=== PATIENT | male | born 2000 | race Caucasian/White ===

== ENCOUNTER → 2023-12-17 16:55 | Outpatient (REF) | payer BC, SELFPAY | LOC: RAD 16:55 | PROVIDERS: ATTENDING PHYSICIAN Nurse Practitioner Family | DX: M25.521 Pain in right elbow (principal) | CPT/HCPCS: 73080 ==

== ENCOUNTER 2025-11-04 11:19 | Emergency (ER) | payer BC, SELFPAY ==
[2025-11-04 11:20] VITALS: BP 127/80
--- NOTE | 2025-11-04 11:48 | ED.GENMED ---
History of Present Illness
General
Chief Complaint: Cold/Flu/URI Symptoms
Source: patient
Exam Limitations: none
Time Seen by Provider: 11/04/25 11:41
History of Present Illness
History of Present Illness:
25-year-old male otherwise healthy presents with 3 days worth of cough fatigue myalgias vomiting. He has a history of asthma and has been using his inhaler as well. His girlfriend is sick with the flu. No other complaints at this time
Past History
Past History
ED Past Medical History: None
ED Past Surgical History: None
Phy Exam
Physical Exam
Physical Exam:
General: Well-appearing male no acute respiratory distress
HEENT: Normocephalic mucosa dry neck is supple
Heart: Slightly tachycardic but regular
Lungs: Clear no wheeze
Abdomen is soft nontender
Extremities: No cyanosis
Course
Orders/Labs/Results
Orders:
Orders
11/04/25 11:43
COVID-19 Antigen Routine
Source: Nasal Swab
Influenza A+B Rapid Molecular Urgent
ELIE Source: Nasal Swab
Specimen Description:
11/04/25 11:46
0.9% Sodium Chloride 1000 ml [Nss] 1,000 ml IV BOLUS
Ondansetron Injectable [Zofran] 4 mg IV NOW STA
11/04/25 11:56
Complete Blood Count/With Diff Urgent
Comprehensive Metabolic Panel Urgent
Abnormal Lab Results
11/04/25
11:56
WBC 4.2 L 10^3/uL
(4.8-10.8)
RBC 4.63 L 10^6/uL
(4.70-6.10)
Absolute Lymphs (auto) 0.8 L 10^3/uL
(1.2-3.4)
Absolute Monos (auto) 0.7 H 10^3/uL
(0.1-0.6)
Lymphocytes % 19.1 L %
(20.5-51.1)
Monocytes % 15.4 H %
(1.7-9.3)
Sodium 134 L mmol/L
(135-145)
Glucose 105 H mg/dl
(70-99)
11/04/25 11:56
11/04/25 11:56
Vital Signs
Initial and Last Documented VS:
Initial Vital Signs
Temp Pulse Resp BP Pulse Ox
99.2 F 110 18 127/80 99
11/04/25 11:20 11/04/25 11:20 11/04/25 11:20 11/04/25 11:20 11/04/25 11:20
Last Documented Vital Signs
Temp Pulse Resp BP Pulse Ox
99.2 F 110 18 127/80 99
11/04/25 11:20 11/04/25 11:20 11/04/25 11:20 11/04/25 11:20 11/04/25 11:49
MDM/Problems Addressed
Differential Diagnosis Includes:
Patient with fever myalgias fatigue cough vomiting for 3 days. Consider viral illness such as flu or COVID. Will check for electrolyte abnormality. Will treat symptoms with Zofran and fluids.
*Pulse Oximetry
SaO2: 99
Oxygen Mode of Delivery: Room air
Patient hypoxic: no
*Critical Care Note
Total Time (30-74mins, 75-104mins- exclusive of procedures): Not Applicable
Update Note
Update Note:
Labs reviewed white count 4.2. Patient tested positive for influenza A. Now tolerating oral fluids. No respiratory distress. Suspect most symptoms are related to influenza. Will prescribe Zofran and albuterol if needed. Stable for discharge
ED Attending Note
-
Portions of this chart may have been created with voice recognition software.� Occasional wrong word or��sound alike� substitutions may have occurred due to the inherent limitations of voice recognition software.
Discharge Plan
Departure
Patient Disposition: Home (Routine Discharge)
Date of Disposition: 11/04/25
Time of Disposition: 13:37
Patient with high blood pressure during this ER visit?: No
Discharge Problem:
Influenza A
Instructions: Flu in adults - ED (DC)
Prescriptions:
New
ondansetron 4 mg tablet,disintegrating
4 mg PO Q8H PRN (Reason: nausea and vomiting) Qty: 10 0RF
albuterol sulfate 2.5 mg /3 mL (0.083 %) solution for nebulization
2.5 mg inhalation Q6H PRN (Reason: shortness of breath or wheezing) Qty: 75 0RF
No Action
sertraline 50 MG tablet
100 mg PO DAILY
omeprazole 10 MG capsule,delayed release(DR/EC)
10 mg PO BID
ondansetron 4 MG tablet,disintegrating
4 mg PO TIDPRN PRN (Reason: nausea/vomiting) Qty: 6 0RF
amoxicillin 500 mg capsule
500 mg PO TID Qty: 29 0RF
ibuprofen 600 mg tablet
600 mg PO Q6H PRN (Reason: pain) Qty: 20 0RF
cyclobenzaprine 10 mg tablet
10 mg PO TID PRN (Reason: muscle spasm) Qty: 7 0RF
Referrals:
Linda Obrien MD [Family Provider, Family Practice]
Activity Restrictions/Additional Instructions:
Drink plenty of clear liquids. Use Zofran if needed for nausea. Use your nebulizer as needed for trouble breathing. Rest. Continue fever control with ibuprofen or Tylenol.
Interventions
Interventions:
*General Assessment Last Done: 11/04/25 11:20
*Neglect/Abuse Screening Last Done: 11/04/25 11:20
*ED COVID-19 Vaccine History Last Done: 11/04/25 11:20
*ED Influenza Vaccine History Last Done: 11/04/25 11:20
*Risk Screen - Suicide (C-SSRS) Last Done: 11/04/25 11:20
Discharge Date and Time
Print Language: SINHALA
[2025-11-04] MEDS: NSS 1000 IV (11:53)
[2025-11-04] MEDS: ZOFRAN 4 MG IV (11:53)
[2025-11-04 12:14] LABS: Hematocrit 40.8 % (39.0-52.0); Hemoglobin 14.0 g/dL (13.0-18.0); Mean Corp Hgb Conc. 34.3 g/dL (33.0-37.0); Mean Corpuscular Volume 88.1 fL (80.0-94.0); Nucleated Red Blood Cells % 0 % (-); Platelet Count 153 10^3/uL (130-400); Red Cell Dist. Width 12.2 % (11.5-14.5)
[2025-11-04 12:24] LABS: ALT (SGPT) 19 U/L (0-50); AST (SGOT) 28 U/L (17-59); Albumin 4.6 g/dl (3.5-5.0); Alkaline Phosphatase 48 U/L (38-126); Blood Urea Nitrogen 11 mg/dl (9-20); Calcium 8.9 mg/dl (8.4-10.2); Carbon Dioxide 24 mmol/L (22-30); Chloride 101 mmol/L (98-107); Glucose 105 mg/dl (70-99); Potassium 4.0 mmol/L (3.5-5.1); Sodium 134 mmol/L (135-145); Total Protein 7.4 g/dl (6.3-8.2); eGFR > 60.00
[2025-11-04 12:26] LABS: COVID-19 Antigen Negative (Negative)
[2025-11-04 13:00] VITALS: BP 131/80
[2025-11-04] MEDS: DUONEB 3 ML INH (13:55)
== END 2025-11-04 14:24 | disposition home or self-care (01) ==
LOC: EMR 11:19
PROVIDERS: Emergency Medicine; Physician Assistant; EMERGENCY PHYSICIAN Emergency Medicine; FAMILY PHYSICIAN Family Medicine
DX: J10.1 Influenza due to other identified influenza virus with other respiratory manifestations (principal); J45.909 Unspecified asthma, uncomplicated; R11.10 Vomiting, unspecified; Z11.52 Encounter for screening for COVID-19
CPT/HCPCS: 94640; 96374; 96361; 99284; 80053; 85025; 87502; 87811